=== PATIENT | male | born 1960 | race Caucasian/White ===

== ENCOUNTER 2024-07-09 21:22 | Emergency (ER) | payer MEDICARE, MEDICAID ==
[~2024-07-09] VITALS: Ht 182.9 cm; Wt 124.7 kg
== END 2024-07-10 05:23 | disposition home or self-care (01) ==
LOC: ER 21:22
DX: H10.9 Unspecified conjunctivitis (principal); R10.9 Unspecified abdominal pain; K57.30 Diverticulosis of large intestine without perforation or abscess without bleeding; I10 Essential (primary) hypertension; Z98.84 Bariatric surgery status